=== PATIENT | male | born 1950 | race Caucasian/White ===

== ENCOUNTER 2018-03-18 01:39 | Day surgery (SDC) | payer BC ==
[~2018-03-18] VITALS: Ht 167.6 cm; Wt 85.7 kg
[~2018-03-18 01:39] MED LIST: EZET1TAB55 PO; LEVO50TA80 PO; LEVOTHROXIN; LISI-362 PO; NEBI5TAB PO
[2018-03-18 07:17] VITALS: BP 152/94
[2018-03-18] MEDS ORDERED: NORMOSOL R SOLN(*) 1000 ML BAG 1,000 ML IV PRN (07:20)
[2018-03-18] MEDS ORDERED: LIDOCAINE/SOD BICARB 8.4% SYR ID ONE (07:20)
[2018-03-18] MEDS ORDERED: LIDOCAINE MPF 1% 5 ML VIAL ONE (07:38)
[2018-03-18] MEDS ORDERED: PROPOFOL EMUL(*) 10MG/ML 20 ML 60 ML ONE (07:38)
[2018-03-18 08:16] VITALS: BP 92/63
[2018-03-18 08:34] VITALS: BP 124/78
[2018-03-18 08:53] VITALS: BP 143/93
[2018-03-18 08:54] VITALS: BP 154/80
== END 2018-03-18 09:23 | disposition home or self-care (01) ==
LOC: OR 01:39
PROVIDERS: ATTEND Family Medicine
DX: Z12.11 Encounter for screening for malignant neoplasm of colon (principal); K57.30 Diverticulosis of large intestine without perforation or abscess without bleeding
CPT/HCPCS: 00812; 45378; J2001; J2704